=== PATIENT | female | born 1955 | race Caucasian/White ===

== ENCOUNTER → 2017-02-28 | Outpatient (CLI) | payer MEDICARE ==
[~2017-02-28] MED LIST: CITA20TA4 PO; GASTROGRAFIN SOLUTION 30ML (Q9963) As Ordered ONE; ISOVUE-370 76% 100ML VIAL (Q9967) As Ordered ONE; LOSA50TA20 PO; METF500T13 PO; VITA100067 PO
--- NOTE | 2017-02-28 14:47 | REP ---
CT of the abdomen pelvis without IV or bowel contrast: Within the visualized lung sims. There is a 13 mm nodule inferiorly in the lingula. This measured 15 mm on 10/13/2014. At the inferior tip of the lingula that chronic parenchymal scarring, unchanged from 10/13/2014. There is a 10 mm nodule in the anterior segment right lower lobe. This measured 13 mm of 10/13/2014. There is focal atelectasis in the deep posterior sulcus of the left lower lobe similar to 08/23/2078, 10/13/2014. The unenhanced hepatic parenchyma, gallbladder, pancreas and spleen are unremarkable. The adrenals are unremarkable. There are bilateral renal parapelvic cysts. There is no hydronephrosis. There are no renal calculi. The abdominal aorta is unremarkable. There are no ureteral calculi or bladder calculi. The bowel and mesentery are unremarkable. Pelvis: The appendix has a normal appearance. There is a hysterectomy. Vaginal cuff and adnexa are unremarkable. The bladder is unremarkable. There is no pelvic adenopathy or ascites. There are a few diverticula in the sigmoid colon. There is no CT evidence of diverticulitis. There is degenerative disc disease in the lumbar spine at L1-2 and L2-3. Impression: Lung nodules as described. Chronic atelectasis in the deep posterior sulcus of the left lung. Bilateral renal parapelvic cysts, unchanged. The appendix is unremarkable. There is a hysterectomy. Vaginal cuff and adnexa are unremarkable. Diverticulosis without diverticulitis. Otherwise, negative CT of the abdomen and pelvis. Half Signed by Deven Hooper MD 02/28/2017 02:39 P
== END ==
LOC: M RAD 12:08
PROVIDERS: ATTEND Surgery
DX: R10.31 Right lower quadrant pain (principal); R91.8 Other nonspecific abnormal finding of lung field; N28.1 Cyst of kidney, acquired
CPT/HCPCS: 74176; Q9963

== ENCOUNTER → 2017-06-20 | Outpatient (CLI) | payer MEDICARE | LOC: M RAD 16:02 | DX: Z12.31 Encounter for screening mammogram for malignant neoplasm of breast (principal) | CPT/HCPCS: 77067 ==

== ENCOUNTER 2023-08-03 09:39 | Day surgery (SDC) | payer MEDICARE ==
[~2023-08-03] VITALS: Ht 162.6 cm; Wt 84.1 kg
[~2023-08-03 09:39] MED LIST changes: +CETI-24 PO; -CITA20TA4 PO; +CITA20TA6 PO; +CITA40TA7 PO; -GASTROGRAFIN SOLUTION 30ML (Q9963) As Ordered ONE; -ISOVUE-370 76% 100ML VIAL (Q9967) As Ordered ONE; +LOSA100T46 PO; -LOSA50TA20 PO; +LOSA50TA28 PO; +MIDAZOLAM INJ 2MG/2ML VIAL As Ordered ONE; +PHENYLEPHRINE 10% OPHTH SOL 5ML OS PRN; +SIMV10TA21 PO; +SPIR1TAB34 PO; +fentaNYL 100 MCG/2 ML INJECTION As Ordered ONE
[2023-08-03] MEDS: LIDOCAINE 3.5 % 1ML OPHTH TOPICAL GEL OU ONE (10:00)
[2023-08-03] MEDS: OFLOXACIN 0.3 % (OCUFLOX) OPTH SOL 5ML OS ONE (10:00)
[2023-08-03] MEDS: ATROPINE SULFATE 1% OPHTH SOLN 2ML BTL OS SCH (10:20)
[2023-08-03] MEDS: PHENYLEPHRINE 2.5% OPHTH SOL 2ML OS SCH (10:20)
[2023-08-03] MEDS: TROPICAMIDE 1% OPHTH SOLN 15ML OS SCH (10:21)
[2023-08-03] MEDS: LIDOCAINE 1% SDV 5ML VIAL As Ordered ONE (11:11)
[2023-08-03] MEDS: BSS IRRIG/VANCO(10MG)/TOBRA(5MG)/EPINEPH(1:1000-0.5CC)500ML BAG-ORONLY As Ordered ONE (11:11)
[2023-08-03] MEDS: CEFUROXIME 1MG/0.1ML INTRACAMERAL INJ As Ordered ONE (11:14)
[2023-08-03 11:27] VITALS: BP 137/65; TEMP 97.2; O2SAT 96
== END 2023-08-03 12:07 | disposition home or self-care (01) ==
LOC: M SDC 09:39
PROVIDERS: ATTEND Ophthalmology
DX: H25.12 Age-related nuclear cataract, left eye (principal); I10 Essential (primary) hypertension; E78.5 Hyperlipidemia, unspecified; E11.9 Type 2 diabetes mellitus without complications; F41.9 Anxiety disorder, unspecified; F32.A Depression, unspecified; G47.33 Obstructive sleep apnea (adult) (pediatric); Z79.899 Other long term (current) drug therapy
CPT/HCPCS: 66984; J0697; J2250; J3010; V2632

== ENCOUNTER 2023-08-31 10:06 | Day surgery (SDC) | payer MEDICARE ==
[~2023-08-31] VITALS: Ht 162.6 cm; Wt 85.8 kg
[~2023-08-31 10:06] MED LIST changes: -PHENYLEPHRINE 10% OPHTH SOL 5ML OS PRN
[2023-08-31] MEDS: PHENYLEPHRINE 2.5% OPHTH SOL 2ML OD SCH (10:27)
[2023-08-31] MEDS: ATROPINE SULFATE 1% OPHTH SOLN 2ML BTL OD SCH (10:27)
[2023-08-31] MEDS: OFLOXACIN 0.3 % (OCUFLOX) OPTH SOL 5ML OD ONE (10:27)
[2023-08-31] MEDS: TROPICAMIDE 1% OPHTH SOLN 15ML OD SCH (10:27)
[2023-08-31] MEDS: LIDOCAINE 3.5 % 1ML OPHTH TOPICAL GEL OU ONE (10:27)
[2023-08-31] MEDS: PHENYLEPHRINE 10% OPHTH SOL 5ML OD PRN (10:42)
[2023-08-31] MEDS: LIDOCAINE 1% SDV 5ML VIAL As Ordered ONE (11:22)
[2023-08-31] MEDS: BSS IRRIG/VANCO(10MG)/TOBRA(5MG)/EPINEPH(1:1000-0.5CC)500ML BAG-ORONLY As Ordered ONE (11:22)
[2023-08-31] MEDS: CEFUROXIME 1MG/0.1ML INTRACAMERAL INJ As Ordered ONE (11:22)
[2023-08-31 11:36] VITALS: BP 171/77; TEMP 97.9; O2SAT 97
== END 2023-08-31 11:55 | disposition home or self-care (01) ==
LOC: M SDC 10:06
PROVIDERS: ATTEND Ophthalmology
DX: H25.11 Age-related nuclear cataract, right eye (principal); I10 Essential (primary) hypertension; E78.5 Hyperlipidemia, unspecified; E11.9 Type 2 diabetes mellitus without complications; F41.9 Anxiety disorder, unspecified; F32.A Depression, unspecified; G47.33 Obstructive sleep apnea (adult) (pediatric); Z79.899 Other long term (current) drug therapy
CPT/HCPCS: 66984; J0697; J2250; J3010; V2632

== ENCOUNTER → 2024-06-02 | Outpatient (CLI) | payer MEDICARE ==
[~2024-06-02] MED LIST changes: -MIDAZOLAM INJ 2MG/2ML VIAL As Ordered ONE; -fentaNYL 100 MCG/2 ML INJECTION As Ordered ONE
== END ==
LOC: M SLEEP 20:00
PROVIDERS: ATTEND Internal Medicine Pulmonary Disease
DX: G47.33 Obstructive sleep apnea (adult) (pediatric) (principal); G47.61 Periodic limb movement disorder